=== PATIENT | female | born 1975 | race African-American/Black ===

== ENCOUNTER 2019-03-26 20:03 | Emergency (ER) | payer MEDICAID ==
[~2019-03-26] VITALS: Ht 170.2 cm; Wt 71.0 kg
[2019-03-26 20:52] LABS: BASOPHILS % 1.5 % (0.0-2.0); CHLORIDE 104 mEq/L (98-107); EOSINOPHILS % 4.8 % (0.0-5.0); HEMATOCRIT. 25.8 % (36.0-48.0); HEMOGLOBIN. 8.1 g/dL (12.0-16.0); LYMPHOCYTES % 32.6 % (20.0-50.0); MEAN CORPUSCULAR HEMOGLOBIN 24.4 pg (28.0-32.0); MEAN CORPUSCULAR VOLUME 77.9 fL (81.0-99.0); MEAN PLATELET VOLUME 9.3 fl (7.4-10.4); MONOCYTES % 7.1 % (2.0-8.0); PLATELET 408 x1000/uL (130-400); RED BLOOD CELL COUNT 3.31 mill/uL (4.2-5.4); RED CELL DISTRIBUTION WIDTH 17.9 % (11.6-14.6)
[2019-03-26 20:54] LABS: PROTHROMBIN TIME 9.9 sec (9.6-11.0)
[2019-03-26] MEDS: SODIUM CHLORIDE 0.9% 1,000 ML IV ONE (21:10)
[2019-03-26 23:48] VITALS: BP 135/86
== END 2019-03-26 23:52 | disposition home or self-care (01) ==
LOC: ER 20:03
DX: R04.0 Epistaxis (principal); D64.9 Anemia, unspecified
CPT/HCPCS: 36415; 80053; 82962; 85025; 85610; 86850; 86900; 86901; 99283; J7030